=== PATIENT | male | born 1945 | race Asian ===

== ENCOUNTER 2017-11-18 18:03 | Emergency (ER) | payer OTHER ==
[2017-11-18] MEDS: IBUPROFEN 600 MG TAB PO (20:22)
[2017-11-18] MEDS: DIPHTH/TET/ACEL PERTUSS (ADULT) 0.5 ML VIAL IM* (20:23)
== END 2017-11-18 20:53 | disposition home or self-care (01) ==
LOC: FTE 18:03
DX: S61.431A Puncture wound without foreign body of right hand, initial encounter (principal); T63.691A Toxic effect of contact with other venomous marine animals, accidental (unintentional), initial encounter; X58.XXXA Exposure to other specified factors, initial encounter; Y92.9 Unspecified place or not applicable; Z23 Encounter for immunization
CPT/HCPCS: 90471; 90715; 99283-25